=== PATIENT | female | born 1955 | race Caucasian/White ===

== ENCOUNTER 2018-12-02 06:45 | Day surgery (SDC) | payer BC ==
[2018-12-02] MEDS ORDERED: Propofol 200 MG/20 ML SDV ONE ×2 (07:16→08:08)
[2018-12-02] MEDS ORDERED: fentaNYL 100 MCG/2 ML SDV ONE (07:16)
[2018-12-02] MEDS ORDERED: Midazolam 1 MG/ML 2 ML SDV ONE (07:16)
[2018-12-02] MEDS ORDERED: Sodium Chloride 0.9% 1,000 ML IV SCH (07:30)
[2018-12-02 09:04] VITALS: BP 150/83
--- NOTE | 2018-12-02 15:21 | OR ---
DATE OF PROCEDURE: 12/02/2018 SURGEON: Bari Linder MD PROCEDURE: Colonoscopy. FINDINGS: Transverse colon polyp, approximately 1 cm, completely removed using hot snare. COMPLICATIONS: None. 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 ANESTHESIA: MAC. RISKS: Risks, benefits, alternatives, and limitations including, but not limited to infection, bleeding, and perforation were explained to the patient, who wished to proceed. PROCEDURE IN DETAIL: The patient was placed in left lateral decubitus position. Digital rectal exam was performed without abnormality. The scope was introduced and advanced atraumatically to the ileocecal valve. A photo was taken of this. The scope was brought back through the ascending, transverse, descending colon, and retroflexed. After hot snare removal, no other abnormalities were noted. No abnormalities on retroflexion. The patient tolerated the procedure well. Bari Linder MD /[id number]
== END 2018-12-02 09:15 | disposition home or self-care (01) ==
LOC: JP.SDS 06:45
PROVIDERS: ATTEND Surgery
DX: Z12.11 Encounter for screening for malignant neoplasm of colon (principal); K51.40 Inflammatory polyps of colon without complications; E78.5 Hyperlipidemia, unspecified; E11.39 Type 2 diabetes mellitus with other diabetic ophthalmic complication; H42 Glaucoma in diseases classified elsewhere; Z80.0 Family history of malignant neoplasm of digestive organs
CPT/HCPCS: 45385; J2250; J2704; J3010; J7030; 88305

== ENCOUNTER 2023-09-24 06:40 | Day surgery (SDC) | payer MEDICARE ==
[2023-09-24] MEDS ORDERED: Midazolam 1 MG/ML 2 ML SDV ONE (07:12)
[2023-09-24] MEDS ORDERED: fentaNYL 50 MCG/ML SDV ONE (07:12)
[2023-09-24] MEDS ORDERED: Propofol 200 MG/20 ML SDV ONE (07:12)
[2023-09-24] MEDS: Sodium Chloride 0.9% 1,000 ML IV SCH (07:17)
[2023-09-24] MEDS ORDERED: Sodium Chloride 0.9% 1,000 ML IV SCH (07:30)
[2023-09-24 09:59] VITALS: BP 140/69; PULSE 88
== END 2023-09-24 10:00 | disposition home or self-care (01) ==
LOC: JP.SDS 06:40
PROVIDERS: ATTEND Surgery
DX: Z12.11 Encounter for screening for malignant neoplasm of colon (principal); D12.2 Benign neoplasm of ascending colon; Z80.0 Family history of malignant neoplasm of digestive organs
CPT/HCPCS: 45380; 88305; J2250; J2704; J3010; J7030